=== PATIENT | female | born 1950 | race Caucasian/White ===

== ENCOUNTER 2024-04-17 18:11 | Observation (INO) | payer MEDICARE, BC ==
[~2024-04-17] VITALS: Ht 162.6 cm; Wt 93.3 kg
[2024-04-17] MEDS ORDERED: HCTZ 25MG25 MG PO (18:40)
[2024-04-17] MEDS ORDERED: PANTOPRAZOLE SO40 MG PO (18:41)
[2024-04-17] MEDS ORDERED: LOSARTAN POTASS50 M1 PO (18:41)
[2024-04-17] MEDS ORDERED: FISH OIL 1,0001 EAC2 PO (18:42)
[2024-04-17] MEDS ORDERED: VITAMIN B COMP1 EACH PO (18:43)
[2024-04-17] MEDS ORDERED: MAGNESIUM250 M2 PO (18:43)
[2024-04-17] MEDS ORDERED: EMMA PO (18:44)
[2024-04-17] MEDS ORDERED: FEROSUL325 M1 PO (18:44)
[2024-04-17] MEDS ORDERED: COENZYME Q10100 M1 PO (18:44)
[2024-04-17] MEDS ORDERED: NS 500 ML IV SCH (18:45)
[2024-04-17] MEDS ORDERED: VESICARE10 MG PO (18:45)
[2024-04-17] MEDS ORDERED: METFORMIN HCL1000 M1 PO (18:45)
[2024-04-17] MEDS ORDERED: CALCIUM 600 MG-1 TAB PO (18:46)
[2024-04-17] MEDS ORDERED: ASPIRIN E.C. 8181 MG PO (18:46)
[2024-04-17] MEDS ORDERED: METOPROLOL SUCC50 M1 PO (18:47)
[2024-04-17] MEDS ORDERED: WELLBUTRIN XL150 M2 PO (18:48)
[2024-04-17] MEDS ORDERED: GLIPIZIDE10 M2 PO (18:48)
[2024-04-17] MEDS ORDERED: ROSUVASTATIN CA20 MG PO (18:49)
[2024-04-17] MEDS ORDERED: LEVOTHYROXINE100 MC1 PO (18:49)
[2024-04-17] MEDS ORDERED: Metoprolol Tartrate 1 MG/ML 5 ML VIAL IV ONE ×2 (19:15→19:30)
[2024-04-17 19:23] LABS: BASO # 0.05 K/mm3 (0.02-0.10); EOS # 0.13 K/mm3 (0.04-0.40); EOS % 1.2 % (1.0-5.0); HEMATOCRIT 43.9 % (37.0-47.0); HEMOGLOBIN 15.3 g/dL (12.5-16.0); LYMPH# 1.53 K/mm3 (1.50-4.00); MEAN CELL VOLUME 93 fl (78-100); MEAN CORPUSCULAR HEMOGLOBIN 32 pg (27-31); MEAN CORPUSCULAR HGB CONC 35 g/dL (33-37); MEAN PLATELET VOLUME 12.2 fl (7.4-10.4); MONO # 0.89 K/mm3 (0.20-0.80); PLATELET COUNT 171 K/mm3 (130-400); RED BLOOD COUNT 4.74 M/mm3 (4.10-5.30); RED CELL DISTRIBUTION WIDTH 12.3 % (11.5-14.5); WHITE BLOOD COUNT 10.7 K/mm3 (4.8-10.8)
[2024-04-17 19:38] LABS: ALBUMIN 3.9 g/dL (3.4-4.8)
[2024-04-17 19:39] LABS: CALCIUM 10.2 mg/dL (8.3-10.5)
[2024-04-17 19:40] LABS: TOTAL PROTEIN 7.3 g/dL (6.2-8.1)
[2024-04-17 19:42] LABS: TOTAL BILIRUBIN 0.7 mg/dL (0.2-1.2)
[2024-04-17 19:51] LABS: URINE APPEARANCE CLEAR (CLEAR); URINE BILIRUBIN NEGATIVE (NEGATIVE); URINE COLOR YELLOW (YELLOW); URINE GLUCOSE 2+ (NEGATIVE); URINE KETONE 1+ (NEGATIVE); URINE NITRATE NEGATIVE (NEGATIVE); URINE PROTEIN(semi-quant) 3+ (NEGATIVE)
[2024-04-17 19:52] LABS: URINE BLOOD TRACE-INTACT (NEGATIVE); URINE LEUKOCYTE ESTERASE NEGATIVE (NEGATIVE)
[2024-04-17] MEDS ORDERED: hydroCHLOROthiazide 25 MG TAB PO ONE (20:00)
[2024-04-17] MEDS ORDERED: Losartan 50 MG TAB PO ONE (20:00)
[2024-04-17] MEDS ORDERED: metFORMIN XR 500 MG TAB PO ONE (20:30)
[2024-04-17] MEDS ORDERED: hydrALAZINE 20 MG/ML 1 ML VIAL IV ONE ×2 (21:15→22:15)
[2024-04-17] MEDS ORDERED: Acetaminophen 500 MG TAB PO PRN (21:45)
[2024-04-17] MEDS ORDERED: Polyethylene Glycol 3350 Powder 17 GM PACKET PO PRN (21:45)
[2024-04-17] MEDS ORDERED: glipiZIDE 5 MG TAB PO SCH (21:49)
[2024-04-17] MEDS ORDERED: hydrALAZINE 20 MG/ML 1 ML VIAL IV PRN (22:00)
[2024-04-17] MEDS ORDERED: Glucagon 1 MG VIAL IM PRN (22:00)
[2024-04-17] MEDS ORDERED: Dextrose 50% Water 25 GM/50 ML SYRINGE IV PRN (22:00)
[2024-04-17] MEDS ORDERED: Dextrose (Glucose) 15 GM (4 x 3.75 GM) Chewable TAB PACK PO PRN (22:00)
[2024-04-17] MEDS ORDERED: Insulin Lispro (HumaLOG) SQ SCH (22:05)
--- NOTE | 2024-04-17 22:25 | NUR ---
Patient admitted to room 204 observation from ER via wheelchair with DX of hypertensive crisis. Min 1 assist to bed accompanied by [employer]. and daughter present and left shortly after patient resting back in bed. Oriented to room and call light and bed alarm on. See admission assessment. Reports sore throat and Dr. Pinzon notified. Patient requests tylenol and given. Tele on reading NSR HR 90's. SCD's applied and at 2300 removed per patient request, made her RLE jumpy and restless. Wears CPAP at home and requests oxygen through the night. Dr. Pinzon notified and order received. O2 applied at [address] Pinzon ok'd katlin per patient request for urine incontinence-applied.
[2024-04-17 22:30] VITALS: BP 167/72
[2024-04-17] MEDS ORDERED: Brimonidine 0.2% Ophth Soln 5 ML BOTTLE OP SCH (23:22)
[2024-04-17] MEDS ORDERED: Timolol 0.5% Ophth Soln 5 ML BOTTLE OP SCH (23:23)
[2024-04-17] MEDS ORDERED: Latanoprost 0.005% Ophth Soln 2.5 ML BOTTLE OP SCH (23:24)
[2024-04-18] VITALS (8 sets, daily range): BP systolic 130–178; BP diastolic 52–80
--- NOTE | 2024-04-18 06:24 | NUR ---
PATIENT AWAKE AND STATES SHE SLEPT WELL. LAB IN DRAWING BLOOD.
[2024-04-18 07:20] LABS: BASO # 0.08 K/mm3 (0.02-0.10); EOS # 0.13 K/mm3 (0.04-0.40); EOS % 1.2 % (1.0-5.0); HEMATOCRIT 42.3 % (37.0-47.0); HEMOGLOBIN 14.1 g/dL (12.5-16.0); LYMPH# 1.73 K/mm3 (1.50-4.00); MEAN CELL VOLUME 92 fl (78-100); MEAN CORPUSCULAR HEMOGLOBIN 31 pg (27-31); MEAN CORPUSCULAR HGB CONC 33 g/dL (33-37); MEAN PLATELET VOLUME 12.5 fl (7.4-10.4); MONO # 0.99 K/mm3 (0.20-0.80); NEU # 7.73 K/mm3 (1.40-6.50); PLATELET COUNT 177 K/mm3 (130-400); RED BLOOD COUNT 4.58 M/mm3 (4.10-5.30); RED CELL DISTRIBUTION WIDTH 12.4 % (11.5-14.5); WHITE BLOOD COUNT 10.7 K/mm3 (4.8-10.8)
[2024-04-18 07:30] LABS: ALBUMIN 3.3 g/dL (3.4-4.8)
[2024-04-18] MEDS ORDERED: glipiZIDE 5 MG TAB PO SCH (07:30)
[2024-04-18 07:32] LABS: CALCIUM 9.6 mg/dL (8.3-10.5)
[2024-04-18 07:33] LABS: TOTAL PROTEIN 6.3 g/dL (6.2-8.1)
[2024-04-18 07:35] LABS: TOTAL BILIRUBIN 0.6 mg/dL (0.2-1.2)
[2024-04-18] MEDS ORDERED: Magnesium Oxide 400 MG TAB PO SCH (09:00)
[2024-04-18] MEDS ORDERED: Losartan 50 MG TAB PO SCH (09:00)
[2024-04-18] MEDS ORDERED: metFORMIN XR 500 MG TAB PO SCH (09:00)
[2024-04-18] MEDS ORDERED: hydroCHLOROthiazide 25 MG TAB PO SCH (09:00)
[2024-04-18] MEDS ORDERED: buPROPion XL (24-HR ER) 150 MG TAB PO SCH (09:00)
[2024-04-18] MEDS ORDERED: Insulin Lispro (HumaLOG) SQ SCH (17:00)
--- NOTE | 2024-04-18 19:07 | NUR ---
REPORT GIVEN TO ADELAIDA EDEN
--- NOTE | 2024-04-18 20:00 | NUR ---
Patient watching game on TV. in visiting.
[2024-04-18] MEDS ORDERED: Insulin Glargine-ygfn (Lantus) SQ SCH (21:00)
--- NOTE | 2024-04-18 21:00 | NUR ---
Patient resting in bed on tablet and watching TV. Denies pain. Alert and oriented x 4. Pleasant. HS meds all reviewed and given along with insulins. Ice cream given per request for snack.
[2024-04-19 03:30] VITALS: BP 175/57
--- NOTE | 2024-04-19 04:00 | NUR ---
Apresoline given for BP 175/57. Patient denies needs. Purewick catheter intact. O2 on 1 Lpnc.
[2024-04-19 05:00] VITALS: BP 156/71
[2024-04-19 07:39] VITALS: BP 158/73
[2024-04-19 11:10] VITALS: BP 151/73
--- NOTE | 2024-04-19 13:58 | NUR ---
DISCHARGE INSTRUCTIONS AND MEDICATIONS REVIEWED WITH PATIENT. DENIES ANY QUESTIONS. EYE DROPS GIVEN TO PATIENT TO TAKE HOME. PT WHEELED OUT TO PRIVATE VEHICLE WITH .
== END 2024-04-19 13:45 | disposition home or self-care (01) ==
LOC: ED 18:11 → MED/SURG 21:18
PROVIDERS: Nurse Practitioner Family; ADMIT Family Medicine
DX: I16.0 Hypertensive urgency (principal); I10 Essential (primary) hypertension; E11.9 Type 2 diabetes mellitus without complications; Z79.84 Long term (current) use of oral hypoglycemic drugs; E11.65 Type 2 diabetes mellitus with hyperglycemia; I25.10 Atherosclerotic heart disease of native coronary artery without angina pectoris; E03.9 Hypothyroidism, unspecified; E83.42 Hypomagnesemia; F41.8 Other specified anxiety disorders; E78.5 Hyperlipidemia, unspecified; K21.9 Gastro-esophageal reflux disease without esophagitis; Z79.890 Hormone replacement therapy; Z79.82 Long term (current) use of aspirin; Z79.899 Other long term (current) drug therapy; Z89.429 Acquired absence of other toe(s), unspecified side
CPT/HCPCS: G0378; J0360; J1650; J1815; J7040; J7120